=== PATIENT | male | born 1970 | race Two or more races ===

== ENCOUNTER 2022-02-09 18:37 | Emergency (ER) | payer OTHER ==
[~2022-02-09] VITALS: Ht 172.7 cm; Wt 91.0 kg
[2022-02-09] MEDS ORDERED: SODIUM CHLORIDE 0.9% 1000ML BAG (SEPSIS BOLUS) IV ONE (18:45)
[2022-02-09 19:27] LABS: HEMATOCRIT. 31.6 % (42.0-52.0); HEMOGLOBIN. 10.4 g/dL (14.0-18.0); MEAN CORPUSCULAR HEMOGLOBIN 25.6 pg (28.0-32.0); MEAN CORPUSCULAR VOLUME 78.1 fL (80.0-94.0); MEAN PLATELET VOLUME 8.9 fl (7.4-10.4); PLATELET 285 x1000/uL (130-400); RED BLOOD CELL COUNT 4.04 mill/uL (4.7-6.1); RED CELL DISTRIBUTION WIDTH 14.1 % (11.6-14.6)
[2022-02-09 19:36] LABS: CHLORIDE 100 mEq/L (98-107)
[2022-02-09 19:41] LABS: INR 1.2
[2022-02-09 19:44] LABS: ETHANOL BLOOD < 10 mg/dL
[2022-02-09 20:19] LABS: PLATELET ESTIMATE NORMAL
[2022-02-09] MEDS ORDERED: PIPERACILLIN/TAZ 3.375G PREMIX 50 ML IV NR (20:30)
[2022-02-09] MEDS ORDERED: ASPIRIN 325MG EC TABLET PO NR (20:30)
[2022-02-09] MEDS ORDERED: MORPHINE SULFATE 4 MG/ML CPJ (NOT FOR IM USE) IV NR (21:00)
[2022-02-09] MEDS ORDERED: ENOXAPARIN 80MG/0.8ML SYR SUBCUT NR (21:00)
[2022-02-09] MEDS ORDERED: VANCOMYCIN 1.25GM PMX (XELLIA) 250 ML IV NR (21:30)
[2022-02-09 22:30] VITALS: BP 143/90
== END 2022-02-09 23:27 | disposition left against medical advice (07) ==
LOC: EDBD → ER 18:37 → ENRESERV 23:29 → CANBEDREQ 02-10 02:18
DX: A41.9 Sepsis, unspecified organism (principal); L03.116 Cellulitis of left lower limb; I21.4 Non-ST elevation (NSTEMI) myocardial infarction; E86.0 Dehydration; G93.41 Metabolic encephalopathy; E11.9 Type 2 diabetes mellitus without complications; I10 Essential (primary) hypertension; Z20.822 Contact with and (suspected) exposure to COVID-19
CPT/HCPCS: 36415; 70450; 71045; 73630; 80053; 80320; 82140; 82962; 83605; 83690; 83880; 84145; 84484; 85025; 85610; 86850; 86900; 86901; 87040; 87426; 93005; 96361; 96365; 96372; 99291; C9803; J1650; J2543; J7030; J2270; J3370; G0480

== ENCOUNTER 2022-02-10 22:59 | Inpatient (IN) | payer OTHER ==
[~2022-02-10] VITALS: Ht 203.2 cm; Wt 117.5 kg
[2022-02-10] MEDS ORDERED: VANCOMYCIN 1G PREMIX 200 ML IV ONE (23:30)
[2022-02-10] MEDS ORDERED: PIPERACILLIN/TAZ 3.375G PREMIX 50 ML IV ONE (23:30)
[2022-02-10 23:48] LABS: BASOPHILS % 0.3 % (0.0-2.0); EOSINOPHILS % 0.2 % (0.0-5.0); HEMOGLOBIN. 10.4 g/dL (14.0-18.0); LYMPHOCYTES % 8.6 % (20.0-50.0); MEAN CORPUSCULAR HEMOGLOBIN 25.5 pg (28.0-32.0); MEAN CORPUSCULAR VOLUME 78.6 fL (80.0-94.0); MEAN PLATELET VOLUME 7.7 fl (7.4-10.4); MONOCYTES % 8.1 % (2.0-8.0); NEUTROPHILS % 82.8 % (40.0-76.0); PLATELET 290 x1000/uL (130-400); RED BLOOD CELL COUNT 4.07 mill/uL (4.7-6.1)
[2022-02-10 23:57] LABS: CHLORIDE 102 mEq/L (98-107)
[2022-02-10 23:59] LABS: INR 1.2; PROTHROMBIN TIME 12.5 sec (9.6-11.0)
[2022-02-11] MEDS ORDERED: SODIUM CHLORIDE 0.9% 1,000 ML IV ONE (01:00)
[2022-02-11] MEDS ORDERED: INSULIN REGULAR (HUMULIN R) 300UNITS/3ML VIAL SUBCUT NR (01:15)
[2022-02-11] MEDS ORDERED: VANCOMYCIN 1G PREMIX 200 ML IV NR (01:30)
[2022-02-11 08:00] VITALS: BP 146/92
[2022-02-11 09:08] LABS: CLARITY URINE CLEAR (CLEAR); COLOR URINE YELLOW (YELLOW); KETONES URINE 1+ (NEGATIVE); LEUKOCYTE ESTERASE URINE NEGATIVE (NEGATIVE); NITRITE URINE NEGATIVE (NEGATIVE); OCCULT BLOOD URINE 1+ (NEGATIVE); PH URINE 5.5 (4.5-8.0); PROTEIN URINE 2+ (NEGATIVE); SPECIFIC GRAVITY URINE 1.028 (1.005-1.030); UROBILINOGEN URINE 0.2 E.U./dL (0.2-1.0)
[2022-02-11 09:37] LABS: *AMPHETAMINES SCREEN URINE NEGATIVE (NEGATIVE); *BARBITURATES SCREEN URINE NEGATIVE (NEGATIVE); *BENZODIAZEPINES SCREEN URINE NEGATIVE (NEGATIVE); *COCAINE SCREEN URINE NEGATIVE (NEGATIVE); CANNABINOID URINE SCREEN NEGATIVE (NEGATIVE); METHADONE URINE SCREEN NEGATIVE (NEGATIVE); OPIATES URINE SCREEN NEGATIVE (NEGATIVE); PHENCYCLIDINE URINE SCREEN NEGATIVE (NEGATIVE)
[2022-02-11] MEDS ORDERED: ACETAMINOPHEN 325MG TABLET PO PRN (10:00)
[2022-02-11] MEDS ORDERED: DEXTROSE 50% WATER 50ML SYRINGE IV PRN (10:00)
[2022-02-11] MEDS ORDERED: CLONIDINE 0.1MG TABLET PO PRN (10:15)
[2022-02-11] MEDS: HYDROCODONE/ACETAMINOPHEN 10/325MG TABLET PO PRN (11:07)
[2022-02-11] MEDS: BLOOD SUGAR DIAGNOSTIC STRIP TEST SCH ×3 (11:08→21:01)
[2022-02-11] MEDS: VANCOMYCIN 1GM PMX (XELLIA) 200 ML IV SCH ×2 (11:08→17:37)
[2022-02-11 12:00] VITALS: BP 127/83
[2022-02-11 12:43] LABS: BASOPHILS % 0.1 % (0.0-2.0); EOSINOPHILS % 0.5 % (0.0-5.0); HEMATOCRIT. 28.9 % (42.0-52.0); HEMOGLOBIN. 9.5 g/dL (14.0-18.0); LYMPHOCYTES % 12.4 % (20.0-50.0); MEAN PLATELET VOLUME 7.9 fl (7.4-10.4); PLATELET 232 x1000/uL (130-400); RED BLOOD CELL COUNT 3.66 mill/uL (4.7-6.1)
[2022-02-11] MEDS: INSULIN LISPRO 100 UNITS/ML SUBCUT SCH ×3 (12:48→21:38)
[2022-02-11 13:09] LABS: CHLORIDE 108 mEq/L (98-107)
[2022-02-11 13:35] VITALS: BP 146/92
[2022-02-11] MEDS: PIPERACILLIN/TAZOBACTAM 3.375 G in DEXTROSE 5% WATER 50 ML IV SCH ×2 (13:57→21:55)
[2022-02-11 16:00] VITALS: BP 142/101
[2022-02-11 20:00] VITALS: BP 164/92
[2022-02-11] MEDS: INS NPH/REG HM 70-30 100 UNITS/ML 3ML VIAL (HUMULIN 70-30) SUBCUT SCH (22:12)
[2022-02-12] VITALS: BP 138/88
[2022-02-12] MEDS: HYDROCODONE/ACETAMINOPHEN 10/325MG TABLET PO PRN ×3 (02:35→20:16)
[2022-02-12] MEDS: VANCOMYCIN 1GM PMX (XELLIA) 200 ML IV SCH ×2 (02:37→09:38)
[2022-02-12 04:00] VITALS: BP 144/80
[2022-02-12] MEDS: PIPERACILLIN/TAZOBACTAM 3.375 G in DEXTROSE 5% WATER 50 ML IV SCH ×2 (05:31→12:50)
[2022-02-12] MEDS: BLOOD SUGAR DIAGNOSTIC STRIP TEST SCH ×4 (05:39→20:17)
[2022-02-12] MEDS: INSULIN LISPRO 100 UNITS/ML SUBCUT SCH ×4 (06:32→20:16)
[2022-02-12 07:51] LABS: CHLORIDE 103 mEq/L (98-107)
[2022-02-12 08:00] VITALS: BP 109/82
[2022-02-12 08:07] LABS: BASOPHILS % 0.6 % (0.0-2.0); EOSINOPHILS % 0.9 % (0.0-5.0); HEMATOCRIT. 29.8 % (42.0-52.0); HEMOGLOBIN. 9.5 g/dL (14.0-18.0); LYMPHOCYTES % 15.9 % (20.0-50.0); MEAN CORPUSCULAR HEMOGLOBIN 25.3 pg (28.0-32.0); MEAN CORPUSCULAR VOLUME 79.3 fL (80.0-94.0); MEAN PLATELET VOLUME 8.7 fl (7.4-10.4); MONOCYTES % 7.9 % (2.0-8.0); NEUTROPHILS % 74.7 % (40.0-76.0); PLATELET 224 x1000/uL (130-400); RED BLOOD CELL COUNT 3.75 mill/uL (4.7-6.1); RED CELL DISTRIBUTION WIDTH 13.9 % (11.6-14.6)
[2022-02-12] MEDS: INS NPH/REG HM 70-30 100 UNITS/ML 3ML VIAL (HUMULIN 70-30) SUBCUT SCH (09:38)
[2022-02-12 12:00] VITALS: BP 132/78
[2022-02-12] MEDS ORDERED: LIDOCAINE HCL 1% 30ML VIAL (10MG/ML) INFIL SCH (13:00)
[2022-02-12] MEDS ORDERED: BUPIVACAINE HCL/PF 0.5% (5MG/ML) 10ML INFIL SCH (13:00)
[2022-02-12 16:00] VITALS: BP 155/78
[2022-02-12 17:41] VITALS: BP 133/54
[2022-02-12] MEDS ORDERED: MORPHINE SULFATE 2 MG/ML CPJ (NOT FOR IM USE) IV NR (17:45)
[2022-02-12] MEDS ORDERED: VANCOMYCIN 1500MG in DEXTROSE 5% WATER 250ML IV SCH (18:00)
[2022-02-12] MEDS ORDERED: INS NPH/REG HM 70-30 100 UNITS/ML 3ML VIAL (HUMULIN 70-30) SUBCUT SCH (18:15)
[2022-02-12] MEDS ORDERED: HEPARIN 5000 UNITS/ML VIAL SUBCUT SCH (21:00)
[2022-02-12 21:29] LABS: HDL CHOLESTEROL 12 mg/dL (40-59); LDL CHOLESTEROL 62 mg/dL (5-100)
== END 2022-02-12 21:03 | disposition left against medical advice (07) | DRG 853 ==
LOC: ER 23:11 → 8WST 02-11 02:10 → ENRESERV 02-11 06:02
PROVIDERS: ADMIT Family Medicine; ATTEND Family Medicine
PROC: 0LBW0ZZ Excision of Left Foot Tendon, Open Approach (ICD-10-PCS; principal; 2022-02-12)
PROC: 0Y6Y0Z0 Detachment at Left 5th Toe, Complete, Open Approach (ICD-10-PCS; 2022-02-12)
PROC: 0JBR0ZZ Excision of Left Foot Subcutaneous Tissue and Fascia, Open Approach (ICD-10-PCS; 2022-02-12)
PROC: 0QBP0ZZ Excision of Left Metatarsal, Open Approach (ICD-10-PCS; 2022-02-12)
DX: A41.9 Sepsis, unspecified organism (principal); A48.0 Gas gangrene; E43 Unspecified severe protein-calorie malnutrition; L03.116 Cellulitis of left lower limb; E87.1 Hypo-osmolality and hyponatremia; G93.40 Encephalopathy, unspecified; E11.52 Type 2 diabetes mellitus with diabetic peripheral angiopathy with gangrene; E11.65 Type 2 diabetes mellitus with hyperglycemia; E11.628 Type 2 diabetes mellitus with other skin complications; E66.9 Obesity, unspecified; S90.822A Blister (nonthermal), left foot, initial encounter; I10 Essential (primary) hypertension; D50.9 Iron deficiency anemia, unspecified; M19.90 Unspecified osteoarthritis, unspecified site; F43.10 Post-traumatic stress disorder, unspecified; Z53.29 Procedure and treatment not carried out because of patient's decision for other reasons; Z88.2 Allergy status to sulfonamides; Z79.4 Long term (current) use of insulin; Z68.28 Body mass index [BMI] 28.0-28.9, adult; W19.XXXA Unspecified fall, initial encounter; Y93.89 Activity, other specified; Y92.89 Other specified places as the place of occurrence of the external cause; Y99.8 Other external cause status
CPT/HCPCS: 36415; 71045; 73590; 73610; 73630; 80048; 80053; 80061; 80202; 80305; 81003; 82140; 82962; 83036; 83605; 83880; 84145; 84146; 84484; 85025; 88304; 88311; 93005; 93923; 93971; 99291; J1644; J1815; J2270; J2543; J3370; J3490; J7030; J7060